=== PATIENT | male | born 1975 ===

== ENCOUNTER → 2022-02-19 07:36 | Outpatient (CLI) | payer BC, SELFPAY ==
--- NOTE | ~2022-02-19 | MR_ITS ---
EXAMINATION: MR shoulder RT wo con DATE: 02/19/2022 08:07 INDICATION: Right shoulder pain TECHNIQUE: Magnetic resonance imaging (MRI) of the right shoulder was performed without intravenous c ontrast. Sequences included axial PD-weighted FS FSE, coronal oblique PD-weighted FS FSE, coronal obl ique T2-weighted FS FSE, sagittal PD-weighted FS FSE, and sagittal T1-weighted SE. COMPARISON: Right shoulder radiographs dated 07/18/2021 FINDINGS: Coracoacromial arch: The acromion undersurface is flat in morphology (type I). The coracoacromial ligament is normal. Mild acromioclavicular osteoarthritis. Rotator cuff: Mild infraspinatus tendinopathy without discrete tear. The supraspinatus, teres minor and subscapular is tendons are normal. Normal rotator cuff muscle bulk and signal. Biceps tendon, glenoid labrum and glenohumeral cartilage: Long head of the biceps tendon is normal. Interval extension of the previously seen tear at the poste rior inferior glenoid labrum beginning at the 6:30 position, now extending superiorly along the poste rior labrum to the 1:00 position of the anterosuperior labrum. There is a new 7 x 3 x 5 mm para silvia l cyst at the 10:30 position of the posterior superior labrum. Chondral ulceration with partial thick ness cartilage loss and chondral surface irregularity at the superomedial aspect of the humeral head and at the superior glenoid. No degenerative subchondral changes.. Fluid: Physiologic amount of fluid in the glenohumeral joint and biceps tendon sheath. No loose osteochondr al bodies. Small amount of increased fluid signal in the subacromial/subdeltoid bursa consistent with mild bursitis. Bones: Small low signal intensity bone island at the inferomedial aspect of the humeral head. Otherwise norm al marrow signal with no edema, fracture or pathologic marrow replacing process. IMPRESSION: 1. Mild glenohumeral osteoarthritis with progression of prior tear previously at the posterior inferi or glenoid labrum now extending superiorly along the posterior to the anterosuperior labrum. 2. Mild infraspinatus tendinopathy without discrete tear. 3. Moderate acromioclavicular arthritis. 4. Mild subacromial/subdeltoid bursitis. Reviewed, dictated and finalized at location B. IMPRESSION: 1. Mild glenohumeral osteoarthritis with progression of prior tear previously a t the posterior inferior glenoid labrum now extending superiorly along the post erior to the anterosuperior labrum. 2. Mild infraspinatus tendinopathy without discrete tear. 3. Moderate acromioclavicular arthritis. 4. Mild subacromial/subdeltoid bursitis.
== END ==
PROVIDERS: PCP Internal Medicine; Visit Provider Orthopaedic Surgery
DX: M25.511 Pain in right shoulder (principal); M19.011 Primary osteoarthritis, right shoulder; S43.431A Superior glenoid labrum lesion of right shoulder, initial encounter; M77.9 Enthesopathy, unspecified; M75.51 Bursitis of right shoulder
CPT/HCPCS: 73221